=== PATIENT | male | born 1955 | race Caucasian/White ===

== ENCOUNTER → 2023-06-11 | Outpatient (CLI) | payer MEDICARE ==
[2023-06-11 13:55] VITALS: BP 150/84; PULSE 85; RESP 18; TEMP 98.3
--- NOTE | 2023-06-11 14:46 | P.SLEEP ---
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 The patient has loud snoring, and he has been noted to quit breathing in the middle of the night as reported by his . He is waking up tired and fatigued during the day. He tries to go to bed at around 1 AM and during this time the patient is watching television and working at his computer. He wakes up 10 AM in the morning. He feels more tired when he wakes up and going to sleep. His sleep is fragmented and the patient wakes up many times. He was urged to sleep on his side. However at times he goes in his back and immediately wakes up and he has occasional leg jerks and hand squeezing by the activities. No sleep paralysis. No hallucinations. No cataplexy. No substance abuse. No alcoholism. Is a mouth breather. No nocturnal chest pain or heartburn at this point in time. The patient tends has no history of any motor vehicle accident because of feeling drowsy or sleepy. No recent weight gain. No significant restlessness in lower extremities. No grinding of the teeth. Review of Systems Constitutional: Reports daytime sleepiness, Reports fatigue, Reports weight gain Eyes: denies as per HPI, denies blurred vision, denies bulging eye, denies decreased vision, denies diplopia, denies discharge, denies dry eye, denies irritation, denies itching, denies pain, denies photophobia, denies loss of peripheral vision, denies loss of vision, denies tunnel vision/blind spots Ears: deny: decreased hearing, ear discharge, earache, tinnitus Ears, nose, mouth and throat: Reports as per HPI Breasts: absent: as per HPI, gynecomastia Cardiovascular: Reports as per HPI Respiratory: Reports as per HPI, Reports snoring Gastrointestinal: Reports as per HPI Genitourinary: Reports as per HPI Musculoskeletal: Reports as per HPI Musculoskeletal: absent: ankle pain, ankle stiffness, ankle swelling, as per HPI, elbow pain, elbow stiffness, elbow swelling, foot pain, foot stiffness, foot swelling, hand pain, hand stiffness, hand swelling, hip pain, hip stiffness, hip swelling, knee pain, knee stiffness, knee swelling, shoulder pain, shoulder stiffness, shoulder swelling, wrist pain, wrist stiffness, wrist swelling Integumentary: Reports as per HPI Neurological: Reports as per HPI Psychiatric: Reports as per HPI Endocrine: Reports as per HPI, Reports fatigue Hematologic/Lymphatic: Reports as per HPI Past Medical History Past Medical History: Asthma, Hyperlipidemia, Hypertension Additional Past Medical History / Comment(s): ARTHRITIS, SNORING History of Any Multi-Drug Resistant Organisms: MRSA Date of last positivie culture/infection: 1999 MDRO Source:: UNKNOWN Past Surgical History: Orthopedic Surgery Additional Past Surgical History / Comment(s): R HIP REPLACEMENT (SEPTEMBER 2021), BILATERAL CARPAL TUNNEL SURGERY Past Psychological History: No Psychological Hx Reported Smoking Status: Never smoker Past Alcohol Use History: Occasional Past Drug Use History: None Reported - Past Family History Father Family Medical History: Cancer, Coronary Artery Disease (CAD), Sleep Apnea/CPAP/BIPAP Additional Family Medical History / Comment(s): ESOPHAGEAL CANCER, HEART BYPASS Mother Family Medical History: Cancer, Hypertension, Thyroid Disorder Additional Family Medical History / Comment(s): COLON CANCER, Medications and Allergies Home Medications Medication Instructions Recorded Confirmed Type Pravastatin Sodium [Pravachol] 40 mg PO HS 06/11/23 06/11/23 History lisinopriL [Prinivil] 10 mg PO BID 06/11/23 06/11/23 History Physical Exam Vitals: Vital Signs Temp Pulse Resp BP Pulse Ox 06/11/23 13:31 98.3 F 85 18 150/84 96 General appearance the patient is obese, comfortable no acute distress. The patient appeared well nourished and normally developed. Vital signs as documented. Head exam is unremarkable. No scleral icterus or corneal arcus noted. Neck is without jugular venous distension, thyromegaly, or carotid bruit s. Carotid upstrokes are brisk bilaterally. The patient is a Mallampati class IV with significant crowding of the posterior pharynx. Lungs are clear to auscultation and percussion. Cardiac exam reveals the PMI to be normally sized and situated. Rhythm is regular. First and second heart sounds normal. No murmurs, rubs or gallops. Abdominal exam reveals normal bowel sounds, no masses, no organomegaly and no aortic enlargement. Extremities are nonedematous and both femoral and pedal pulses are normal. Examination of the skin revealed no evidence of significant rashes, suspicious appearing nevi or other concerning lesions. Neurologically, the patient is awake and alert and the patient does not have any focal neurological deficit. Cranial nerves are essentially intact. Assessment and Plan Plan: Chronic hypersomnia, currently under investigation. The patient is morbidly obese with a Coll[place] score of 10. The patient has snoring, witnessed apneas and sleep fragmentation. High likelihood for obstructive sleep apnea. He has a Mallampati class IV. Obesity Loud snoring Hypertension Hyperlipidemia Plan The clinical suspicion for obstructive sleep apnea is quite hide this patient. Encourage weight loss. To my sleep hygiene measures. Proceed with a screening polysomnography and we will make further recommendations based on those results. The patient is considering CPAP therapy should he be diagnosed having clinically significant obstructive sleep apnea. A final decision will be done based on the results of the sleep study. Sleep Note - Sleep Data ESS Total: 10 - Sleep Note Sleep Note: Temperature: 98.3 F Pulse Rate: 85 Respiratory Rate: 18 Blood Pressure: 150/84 SpO2: 96 Height: Weight: BMI: Neck Circumference: 19.5
== END ==
LOC: 3 N SLEEP 13:12
PROVIDERS: ATTEND Internal Medicine Critical Care Medicine
DX: G47.10 Hypersomnia, unspecified (principal); E66.9 Obesity, unspecified; R06.83 Snoring; I10 Essential (primary) hypertension; E78.5 Hyperlipidemia, unspecified; G47.8 Other sleep disorders; Z79.899 Other long term (current) drug therapy
CPT/HCPCS: 99202

== ENCOUNTER 2023-07-18 19:35 | Outpatient (CLI) | payer MEDICARE ==
--- NOTE | 2023-08-01 11:02 | P.PCN ---
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 The patient has loud snoring, and he has been noted to quit breathing in the middle of the night as reported by his . He is waking up tired and fatigued during the day. He tries to go to bed at around 1 AM and during this time the patient is watching television and working at his computer. He wakes up 10 AM in the morning. He feels more tired when he wakes up and going to sleep. His sleep is fragmented and the patient wakes up many times. He was urged to sleep on his side. However at times he goes in his back and immediately wakes up and he has occasional leg jerks and hand squeezing by the activities. No sleep paralysis. No hallucinations. No cataplexy. No substance abuse. No alcoholism. Is a mouth breather. No nocturnal chest pain or heartburn at this point in time. The patient tends has no history of any motor vehicle accident because of feeling drowsy or sleepy. No recent weight gain. No significant restlessness in lower extremities. No grinding of the teeth. Physical findings Height is 5 feet and 8 inches, weight is 293 pounds with a body mass index of 44.5 Technical description The patient was studied using a standard complex polysomnography protocol that included recording of the 2 EKG, Central, occipital and frontal EEG, right and left outer canthus EOG, submental EMG, right and left anterior tibialis EMG, respiratory airflow by thermocouple and or pressure/flow transducer, respiratory efforts by abdominal and thoracic PVDF belts, oxygen saturation by cable oximetry. Position by observation synchronized the PSG. Equipment used: [employer]. Sleep characteristics The total recording duration was 426.5 minutes. The total sleep time was 377.5 minutes. The overall sleep efficiency was 88.5%. The latency to sleep onset was 28.5 minutes. The latency to REM sleep was 58.5 minutes. The sleep architecture was characterized by 41.5% stage I, 54.6% stage II, 0% stage III and 4% REM sleep. The total arousal index was 8.1. The wake after sleep onset time was 20.5 minutes. Results Respiratory analysis showed a total of 313 obstructive events of which 30 were obstructive apneas, 6 were mixed apneas and 277 were obstructive hypopneas. The resulting AHI was 41.3. No central apneas were noted. Noted the patient's disease was worse during REM sleep with an AHI of 80 during REM. Oxygenation analysis The patient had nocturnal oxygen desaturation. The baseline oxygen saturation while awake was 95%. Lowest pulse ox was 84% and the patient spent approximatel y 4 minutes of the sleep time below pulse ox of 89%. Lowest pulse ox was encountered during REM sleep and was in the order of 84%. Sleep continuity summary The patient had a total of 51 arousals with an index of 8.1. Respiratory arousal index was 2.2 Periodic limb movements A total of 285. Regular movement activity were counted with an index of 45.3. 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
== END 2023-07-19 06:00 | disposition home or self-care (01) ==
LOC: 3 N SLEEP 19:35
PROVIDERS: ATTEND Internal Medicine Critical Care Medicine
DX: G47.33 Obstructive sleep apnea (adult) (pediatric) (principal); G47.36 Sleep related hypoventilation in conditions classified elsewhere; G47.52 REM sleep behavior disorder; E66.9 Obesity, unspecified; G47.10 Hypersomnia, unspecified; I10 Essential (primary) hypertension; E78.5 Hyperlipidemia, unspecified; Z68.41 Body mass index [BMI] 40.0-44.9, adult
CPT/HCPCS: 95810

== ENCOUNTER 2023-09-03 19:49 | Outpatient (CLI) | payer MEDICARE ==
--- NOTE | 2023-09-11 00:14 | P.PCN ---
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 The patient has loud snoring, and he has been noted to quit breathing in the middle of the night as reported by his . He is waking up tired and fatigued during the day. He tries to go to bed at around 1 AM and during this time the patient is watching television and working at his computer. He wakes up 10 AM in the morning. He feels more tired when he wakes up and going to sleep. His sleep is fragmented and the patient wakes up many times. He was urged to sleep on his side. However at times he goes in his back and immediately wakes up and he has occasional leg jerks and hand squeezing by the activities. No sleep paralysis. No hallucinations. No cataplexy. No substance abuse. No alcoholism. Is a mouth breather. No nocturnal chest pain or heartburn at this point in time. The patient tends has no history of any motor vehicle accident because of feeling drowsy or sleepy. No recent weight gain. No significant restlessness in lower extremities. No grinding of the teeth. The patient underwent a screening polysomnography and the patient was found to have severe JENARO with an AHI of 43, worse during REM sleep. Sleep architecture was abnormal and the patient was asked to come into the sleep center to undergo CPAP titration. Physical findings Height is 5 feet and 8 inches, weight is 293 pounds with a body mass index of 44.5 Technical description The patient was studied using a standard complex polysomnography protocol that included recording of the 2 EKG, Central, occipital and frontal EEG, right and left outer canthus EOG, submental EMG, right and left anterior tibialis EMG, respiratory airflow by thermocouple and or pressure/flow transducer, respiratory efforts by abdominal and thoracic PVDF belts, oxygen saturation by cable oximetry. Position by observation synchronized the PSG. Equipment used: [employer]. Stepwise CPAP titration was done to eliminate all obstructive respiratory events Sleep architecture The total recording duration was 379 minutes. Total sleep time was 267.5 minutes. The sleep efficiency was calculated to be at 70.6%. The latency to sleep onset was 19.5 minutes. The latency to REM sleep was 260.5 minutes. The sleep architecture was characterized by 13.3% stage I, 85% stage II, 0% stage III, 1.7% REM sleep. The total arousal index was 13.9. The wake after sleep onset time was 92 minutes. Respiratory analysis CPAP titration was started initially at a pressure of 7 cm of water and the pressure was maximized at 10 cm of water. All sleep stages were encountered. The patient was studied and in supine and nonsupine body position. This was a successful titration. No saturations encountered during the titration Sleep continuity summary There was a total of 62 arousals with an index of 15.9. Respiratory arousal index was 0 Periodic limb movement activity Significant number of periodic limb movement activity a total of 544 with an in dex of 122. Only 4 periodic limb movement activity proceed with arousals with an index of 0.9. Cardiac summary Average heart rate was 67 with a minimum heart rate of 54 and a maximum heart of 61 Assessment Severe symptomatic JENARO with an AHI of 43, worse during REM sleep, the patient underwent successful CPAP titration Mild nocturnal oxygen desaturation, recovered with CPAP therapy Abnormal sleep architecture with over representation of stage I sleep and diminished delta wave and REM Excessive periodic limb movement activity, not causing any significant arousals Obesity with a BMI of 44.5 Chronic hypersomnia with an [place] score of 12 Hypertension Hyperlipidemia Plan Initiate CPAP therapy pressure of 9 cm of water with C-Flex of 3 Offer the patient a AirFit F20 medium size fullface mask Implement good sleep hygiene measures and principles Maintain regular sleep schedule Weight loss Will continue to follow and the patient was seen back in the office in 30 to 90 days to assess clinical response and compliancy.
== END 2023-09-04 05:30 | disposition home or self-care (01) ==
LOC: 3 N SLEEP 19:49
PROVIDERS: ATTEND Internal Medicine Critical Care Medicine
DX: G47.33 Obstructive sleep apnea (adult) (pediatric) (principal); G47.36 Sleep related hypoventilation in conditions classified elsewhere; G47.52 REM sleep behavior disorder; G47.61 Periodic limb movement disorder; I10 Essential (primary) hypertension; E78.5 Hyperlipidemia, unspecified; E66.9 Obesity, unspecified; Z68.41 Body mass index [BMI] 40.0-44.9, adult
CPT/HCPCS: 95811